=== PATIENT | male | born 1975 | race Caucasian/White ===

== ENCOUNTER 2021-04-28 09:39 | Day surgery (SDC) | payer OTHER, SELFPAY ==
[~2021-04-28] VITALS: Ht 175.3 cm; Wt 117.9 kg
[2021-04-28] MEDS ORDERED: fentaNYL citrate 0.05 MG/ML VIAL ONE (12:35)
[2021-04-28] MEDS ORDERED: LIDOCAINE 2% 100 MG/5 ML UJET TP ONE (12:35)
[2021-04-28] MEDS ORDERED: diphenhydrAMINE 50 MG/ML VIAL ONE (12:35)
[2021-04-28] MEDS ORDERED: MIDAZOLAM 5 MG/5 ML VIAL ONE (12:35)
[2021-04-28] MEDS ORDERED: fentaNYL citrate 0.05 MG/ML VIAL IVP ONE (13:50)
[2021-04-28] MEDS ORDERED: MIDAZOLAM 2 MG/2 ML VIAL IVP ONE (13:50)
== END 2021-04-28 13:58 | disposition home or self-care (01) ==
LOC: MDS 09:39 → MMU 09:40 → MDS 13:58
PROVIDERS: ATTEND Internal Medicine Gastroenterology
DX: K62.5 Hemorrhage of anus and rectum (principal); Z86.010 Personal history of colon polyps; I10 Essential (primary) hypertension; E11.9 Type 2 diabetes mellitus without complications; E78.00 Pure hypercholesterolemia, unspecified; F32.9 Major depressive disorder, single episode, unspecified; J45.909 Unspecified asthma, uncomplicated; Z79.899 Other long term (current) drug therapy; Z20.822 Contact with and (suspected) exposure to COVID-19
CPT/HCPCS: 45378; 87426; G0378; J2250; J3010; J1200

== ENCOUNTER 2021-08-04 06:01 | Day surgery (SDC) | payer OTHER ==
[~2021-08-04] VITALS: Ht 175.3 cm; Wt 104.3 kg
[2021-08-04] MEDS ORDERED: LIDOCAINE 2% 100 MG/5 ML UJET TP ONE (07:16)
[2021-08-04] MEDS ORDERED: fentaNYL citrate 0.05 MG/ML VIAL ONE (07:16)
[2021-08-04] MEDS ORDERED: MIDAZOLAM 5 MG/5 ML VIAL ONE (07:16)
[2021-08-04] MEDS ORDERED: diphenhydrAMINE 50 MG/ML VIAL ONE (07:16)
[2021-08-04] MEDS ORDERED: MIDAZOLAM 2 MG/2 ML VIAL IVP ONE (15:20)
[2021-08-04] MEDS ORDERED: fentaNYL citrate 0.05 MG/ML VIAL IVP ONE (15:20)
== END 2021-08-04 10:15 | disposition home or self-care (01) ==
LOC: MMU 06:01 → MDS 06:01
PROVIDERS: ATTEND Internal Medicine Gastroenterology
DX: K62.5 Hemorrhage of anus and rectum (principal); K59.00 Constipation, unspecified; I10 Essential (primary) hypertension; E11.9 Type 2 diabetes mellitus without complications; E78.5 Hyperlipidemia, unspecified; Z20.822 Contact with and (suspected) exposure to COVID-19; Z79.899 Other long term (current) drug therapy
CPT/HCPCS: 45378; 87426; J2250; J3010; J1200